=== PATIENT | female | born 1940 | race American Indian/Alaskan Native ===

== ENCOUNTER 2016-12-20 13:55 | Observation (INO) | payer MEDICARE ==
--- NOTE | 2016-12-20 15:12 | ED PDOC ---
Arrival/HPI - General Historian: Patient, Family - History of Present Illness Time/Duration: 1 week Symptom Onset: Sudden Symptom Course: Intermittent Quality: Stabbing Severity Level: 6 Activities at Onset: Rest, Light Context: Home <LISANDRA BLAS - Last Filed: 12/20/16 18:45> <Justyn Simmons - Last Filed: 12/20/16 18:49> - General Chief Complaint: Chest Pain Time Seen by Provider: 12/20/16 14:14 - History of Present Illness Narrative History of Present Illness (Text): 12/20/16 14:57 Mrs. Salas is a 76 year old female with a past medical history of HLD, HTN, DM2, vertigo, subjective history of "enlarged heart" and breast cancer s/p right mastectomy in 1995 who presents to the [facility] ED with a chief complaint of chest pain of five days duration. She reports that on Thursday of this week she was engaging in light activity around her house when she suddenly experienced a sharp left sided chest pain with radiation to her left axillary and left scapular region that lasted under a minute that patient reports was self limiting. Since that time, she has had this pain with the same presentation intermittently with no association with activity, certain foods or body positioning. She states that she took naproxen for this pain yesterday but read on the medication box that it can cause heart attacks so she started taking tylenol instead with moderate relief of her pain. She states that she sees cardiology, Dr. Philip, for her high blood pressure and that the only thing she remembers him telling her is that she has an "enlarged heart". She denies fever , chills, weight loss, headache, changes in her vision, palpitation, edema, NICHOLS , orthopnea, SOB, cough, wheezing, abdominal pain, N/V, diarrhea, burning/pain with urination, rashes or any numbness/tingling/weakness of any of her extremities. (LISANDRA BLAS) Past Medical History - Provider Review Nursing Documentation Reviewed: Yes - Travel History Have you recently traveled outside [place] w/in the past 3 mons?: No - Past History Past History: Non-Contributing - Infectious Disease Hx of Infectious Diseases: None - Reproductive Menopause: Yes - Cardiac Hx Hypertension: Yes - Endocrine/Metabolic Hx Diabetes Mellitus Type 2: Yes - Hematological/Oncological Hx Cancer: Yes (BREAST) - Psychiatric Hx Depression: No Hx Emotional Abuse: No Hx Physical Abuse: No Hx Substance Use: No - Surgical History Hx Cholecystectomy: Yes Hx Mastectomy: Yes (R) - Suicidal Assessment Feels Threatened In Home Enviroment: No <LISANDRA BLAS - Last Filed: 12/20/16 18:45> Family/Social History - Physician Review Nursing Documentation Reviewed: Yes Family/Social History: Hypertension (Father). denies: Diabetes, CAD/TX, Neoplasm/Cancer Smoking Status: Former Smoker (Quit 43 years ago; admits 15 pack year smoking history) Hx Alcohol Use: No Hx Substance Use: No <LISANDRA BLAS - Last Filed: 12/20/16 18:45> Allergies/Home Meds <LISANDRA BLAS - Last Filed: 12/20/16 18:45> <Justyn Simmons - Last Filed: 12/20/16 18:49> Allergies/Adverse Reactions: Allergies No Known Allergies Allergy (Verified 04/08/13 19:02) Home Medications: Home Meds Medication Instructions Recorded Confirmed Amlodipine Besylate/Benazepril 10 - 40 mg PO DAILY 04/08/13 12/20/16 [Amlodipine-Benazepril 2.5-10] Aspirin 81 mg PO DAILY 04/08/13 12/20/16 Atorvastatin [Lipitor] 10 mg PO DIN 04/08/13 12/20/16 Biotin/Ca/Cr/Cu/Folic Acid/I 1 ctb PO DAILY 04/08/13 12/20/16 [Centrum Silver] Glimepiride 5 mg PO DAILY 04/08/13 12/20/16 Hydrochlorothiazide 25 mg PO DAILY 04/08/13 12/20/16 Meclizine [Antivert] 25 mg PO BID PRN 04/08/13 12/20/16 Naproxen 375 mg PO TID PRN 04/08/13 12/20/16 Nebivolol Hydrochloride [Bystolic] 10 mg PO BID 04/08/13 12/20/16 Potassium Chloride [Klor-Con 10] 10 meq PO BID 04/08/13 12/20/16 Trifluoperazine HCl [Stelazine] 2 mg PO TID 04/08/13 12/20/16 cloNIDine [Catapres] 0.1 mg PO TID 04/08/13 12/20/16 Telmisartan [Micardis] 40 mg PO DAILY 12/20/16 12/20/16 Review of Systems - Physician Review All systems were reviewed & negative as marked: Yes - Review of Systems Constitutional: Normal. absent: Weight Change, Fevers, Night Sweats Eyes: Normal. absent: Vision Changes ENT: Normal. absent: Sore Throat Respiratory: Normal. absent: SOB, Cough, Wheezing Cardiovascular: Chest Pain. absent: Normal, Palpitations, Edema, NICHOLS, Syncope Gastrointestinal: Normal. absent: Abdominal Pain, Diarrhea, Nausea, Vomiting Genitourinary Female: Normal. absent: Dysuria, Hematuria Musculoskeletal: Normal. absent: Back Pain, Neck Pain Skin: Normal. absent: Rash Neurological: Normal. absent: Headache, Dizziness <LISANDRA BLAS - Last Filed: 12/20/16 18:45> Physical Exam Vital Signs Reviewed: Yes Temperature: Afebrile Blood Pressure: Hypertensive Pulse: Bradycardic Respiratory Rate: Normal Appearance: Positive for: Well-Appearing, Non-Toxic, Comfortable Pain Distress: None Mental Status: Positive for: Alert and Oriented X 3 - Systems Exam Head: Present: Atraumatic, Normocephalic Pupils: Present: PERRL Extroacular Muscles: Present: EOMI Conjunctiva: Present: Normal Mouth: Present: Moist Mucous Membranes Neck: Present: Normal Range of Motion, Trachea Midline. No: JVD, Lymphadenopathy Respiratory/Chest: Present: Clear to Auscultation, Good Air Exchange. No: Respiratory Distress, Accessory Muscle Use, Wheezes, Decreased Breath Sounds, Rales, Retracting, Rhonchi, Tender to Palpation Cardiovascular: Present: Regular Rate and Rhythm, Normal S1, S2, Peripheal Pulses Present. No: Murmurs, Irregular Rhythm, Tachycardic, Bradycardic, Muffled Abdomen: Present: Normal Bowel Sounds. No: Tenderness, Distention, Peritoneal Signs Breast/Axillary: Present: Other (R mastectomy scar noted) Back: Present: Normal Inspection. No: CVA Tenderness, Midline Tenderness, Paraspinal Tenderness Upper Extremity: Present: Normal Inspection, NORMAL PULSES, Capillary Refill < 2s. No: Cyanosis, Edema Lower Extremity: Present: Normal Inspection, NORMAL PULSES, Capillary Refill < 2 s. No: Edema, CALF TENDERNESS Neurological: Present: GCS=15, CN II-XII Intact, Speech Normal Skin: Present: Warm, Dry, Normal Color. No: Rashes Lymphatic: No: Cervical Adenopathy Psychiatric: Present: Alert, Oriented x 3, Normal Insight, Normal Concentration <LISANDRA BLAS - Last Filed: 12/20/16 18:45> Vital Signs Temp Pulse Resp BP Pulse Ox 12/20/16 17:54 71 18 161/86 H 97 12/20/16 15:24 67 192/83 H 12/20/16 15:20 67 27 H 192/83 H 99 12/20/16 14:12 98.5 F 59 L 20 181/84 H 98 Medical Decision Making - Lab Interpretations I have reviewed the lab results: Yes <LISANDRA BLAS - Last Filed: 12/20/16 18:45> <Justyn Simmons - Last Filed: 12/20/16 18:49> ED Course and Treatment: 12/20/16 15:35 Impression: 76 year old female with a past medical history of HLD, HTN, DM2, vertigo, subjective history of "enlarged heart" and breast cancer s/p right mastectomy in 1995 who presents to the [facility] ED with a chief complaint of chest pain of five days duration. Patient with hypertension into the 180's systolic on admission. Plan: -CBC, CMP, Cardiac Iso's, BNP, Lipase -Chest X-Ray (Portable) -Chest CT (PE protocol)-to evaluate for aortic dissection/rupture -Clonidine 0.1mg PO for HTN -Reassess and disposition Prior Visits: All reports and results from previous visits reviewed. 04/08/13: Patient presented with TMJ/Neck pain and was diagnosed with cervical sprain and discharged home. (LISANDRA BLAS) 12/20/16 18:25 Patient with noted history with multiple risk factors with ACS; case seen and discussed with resident. EKG with nonspecific changes; no old for comparison. Echo in [facility] from 3.5 years ago showing moderate aortic sclerosis. Returns with nonspecific, nonreproducible chest pain; first CE negative with CTA showing no dissection. 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 Gonsalez, who agreed to place the patient on her service on tele and consult with Dr. Philip. Regarding the possible neoplasm, Dr. Gonsalez said that she will be the one to inform the patient regarding that possibility. 12/20/16 18:[address] Philip called but Dr. Arevalo covering for the moment is not as familiar with patient for discussion. Consult input in [employer]. (Justyn Simmons) - Lab Interpretations Lab Results: 12/20/16 15:00 12/20/16 15:00 Lab Results 12/20/16 15:16: POC Glucose (mg/dL) 203 H 12/20/16 15:00: Sodium 145, Potassium 3.0 L, Chloride 101, Carbon Dioxide 31, Anion Gap 16, BUN 14, Creatinine 0.8, Est GFR ( Amer) > 60, Est GFR (Non- Af Amer) > 60, Random Glucose 216 H, Calcium 11.0 H, Total Bilirubin 0.4, AST 38 H, ALT 40, Alkaline Phosphatase 63, Lactate Dehydrogenase 576, Total Creatine Kinase 201, Troponin I < 0.01, NT-Pro-B Natriuret Pep 50.2, Total Protein 8.3, Albumin 4.7, Globulin 3.6, Albumin/Globulin Ratio 1.3, Lipase 266 12/20/16 15:00: WBC 5.6, RBC 4.96, Hgb 13.1, Hct 39.9, MCV 80.4, MCH 26.4, MCHC 32.8, RDW 15.1 H, Plt Count 157, MPV 11.9 H, Gran % 68.6 H, Lymph % (Auto) 22.5 , [place] % (Auto) 6.7 H, Eos % (Auto) 2.0, Baso % (Auto) 0.2, Gran # 3.82, Lymph # 1.3, [place] # 0.4, Eos # 0.1, Baso # 0.01 - RAD Interpretation Radiology Orders: 12/20/16 14:52 CHEST PORTABLE [RAD] Stat 12/20/16 15:25 ANGIOGRAPHY DISECTION PROTOCOL [CT] Stat - Medication Orders Current Medication Orders: Atorvastatin Calcium (Lipitor) 10 mg PO DIN CHITO Clonidine HCl (Catapres) 0.1 mg PO HS CHITO Clonidine HCl (Catapres) 0.2 mg PO BIDBL CHITO Insulin Human Regular (Humulin R Low) 0 units SC ACHS CHITO PRN Reason: Protocol Meclizine HCl (Antivert) 25 mg PO BID PRN PRN Reason: Dizziness Discontinued Medications Aspirin (Aspirin Chewable) 243 mg PO STAT STA Stop: 12/20/16 18:23 Last Admin: 12/20/16 18:41 Dose: 243 mg Clonidine HCl (Catapres) 0.1 mg PO STAT STA Stop: 12/20/16 14:56 Last Admin: 12/20/16 15:24 Dose: 0.1 mg MAR Pulse and Blood Pressure Document 12/20/16 15:24 [email or web address] (Rec: 12/20/16 15:24 [email or web address] [id number]) Pulse Pulse Rate (60-90 beats/min) 67 Blood Pressure Blood Pressure (100/60-150/90 mm Hg) 192/83 Potassium Chloride (Potassium Chloride Oral Soln) 40 meq PO STAT STA Stop: 12/20/16 15:59 Last Admin: 12/20/16 18:19 Dose: 40 meq Potassium Chloride (K-Dur 20 Meq Er Tab) 40 meq PO STAT STA Stop: 12/20/16 18:44 - PA / HIGH PRESSURE KETTLE OPERATOR / Resident Statement CHILANGO has reviewed & agrees with the documentation as recorded. CHILANGO has examined the patient and agrees with the treatment plan. <Justyn Simmons - Last Filed: 12/20/16 18:49> Disposition/Present on Arrival - Present on Arrival Any Indicators Present on Arrival: No History of DVT/PE: No History of Uncontrolled Diabetes: No Urinary Catheter: No History of Decub. Ulcer: No History Surgical Site Infection Following: None - Disposition Have Diagnosis and Disposition been Completed?: Yes Disposition Time: 18:46 <LISANDRA BLAS - Last Filed: 12/20/16 18:45> <Justyn Simmons - Last Filed: 12/20/16 18:49> - Disposition Diagnosis: Chest pain Disposition: HOSPITALIZED Patient Problems: Current Active Problems Problem Status Onset Chest pain Acute Condition: STABLE Discharge Instructions (ExitCare): Chest Pain (ED) Referrals: Lianet Gonsalez DO [Primary Care Provider] - Follow up with primary Forms: [employer] (Khmer)
[2016-12-20 15:16] VITALS: BMI 27.4
[2016-12-20 15:17] LABS: BASO # 0.01 K/mm3 (0.0-2.0); BASO % 0.2 % (0.0-3.0); EOS # 0.1 (0.0-0.7); GRAN # 3.82 (1.4-6.5); GRAN % 68.6 % (50.0-68.0); HEMATOCRIT 39.9 % (36.0-48.0); LYMPH # 1.3 (1.2-3.4); LYMPH % 22.5 % (22.0-35.0); MEAN CELL VOLUME 80.4 fl (80.0-105.0); MEAN CORPUSCULAR HEMOGLOBIN 26.4 pg (25.0-35.0); MEAN CORPUSCULAR HGB CONC 32.8 g/dl (31.0-37.0); MEAN PLATELET VOLUME 11.9 fl (7.0-11.0); MONO # 0.4 (0.1-0.6); MONO % 6.7 % (1.0-6.0); RED CELL DISTRIBUTION WIDTH 15.1 % (11.5-14.5); WHITE BLOOD COUNT 5.6 10^3/ul (4.5-11.0)
[2016-12-20 15:49] LABS: ALB/GLOB RATIO 1.3 (1.1-1.8); ALKALINE PHOSPHATASE 63 U/L (38-126); ALT/SGPT 40 U/L (7-56); AST/SGOT 38 U/L (14-36); BILIRUBIN,TOTAL 0.4 mg/dL (0.2-1.3); BLOOD UREA NITROGEN 14 mg/dL (7-21); CARBON DIOXIDE 31 mmol/L (21-33); CHLORIDE 101 mmol/L (98-107); GFR AFRICAN-AMERICAN > 60; GLUCOSE,RANDOM 216 mg/dL (70-110); SODIUM 145 mmol/L (132-148); TOTAL PROTEIN 8.3 g/dL (5.8-8.3)
[2016-12-20] MEDS ORDERED: Potassium Chloride 40 mEq/30 ml LIQ UD PO STA (15:58)
--- NOTE | 2016-12-20 16:05 | RAD ---
HISTORY: Chest pain COMPARISON: No prior. FINDINGS: LUNGS: No active pulmonary disease. PLEURA: No significant pleural effusion identified, no pneumothorax apparent. CARDIOVASCULAR: Normal. OSSEOUS STRUCTURES: No significant abnormalities. VISUALIZED UPPER ABDOMEN: Normal. OTHER FINDINGS: None. IMPRESSION: No active disease.
[2016-12-20 16:23] LABS: TROPONIN I < 0.01 ng/mL
[2016-12-20 17:07] LABS: LIPASE 266 U/L (23-300)
--- NOTE | 2016-12-20 17:48 | CT ---
PROCEDURE: CT Angiography Chest, Abdomen and Pelvis with and without intravenous contrast HISTORY: cp, radiating to the back; HTN - r/o PE and dissection COMPARISON: None. TECHNIQUE: Contiguous axial images of the chest, abdomen and pelvis were obtained in the phase of aortic enhancement. A noncontrast enhanced CT of the chest was also obtained to evaluate for possible intramural thrombus. Coronal and sagittal reformats were generated. IV dose administered: 120 mL Omnipaque 350 Radiation dose: Total exam DLP = 1382.56 mGy-cm. This CT exam was performed using one or more of the following dose reduction techniques: Automated exposure control, adjustment of the mA and/or kV according to patient size, and/or use of iterative reconstruction technique. FINDINGS: CT ANGIOGRAPHY OF THE CHEST WITH & WITHOUT CONTRAST: AORTA (CHEST AND ABDOMEN): The thoracic and abdominal aorta are unremarkable, without aneurysm, dissection or rupture. No intramural thrombus identified in the thoracic aorta on the non-contrast ct of the chest. The celiac axis, superior mesenteric artery, inferior mesenteric artery and the renal arteries are widely patent. The pelvic arteries are unremarkable. LUNGS: There is no pulmonary infiltrate. There are scattered calcified granulomata bilaterally. There is 7 mm noncalcified nodule in the left lower lobe (series 5, image 70 close). No other noncalcified pulmonary mass is identified. There is partially calcified scar in the right apex. This is consistent with old granulomatous disease. MEDIASTINUM: No mediastinal lymphadenopathy. Numerous bilateral thyroid nodules. Recommend correlation with thyroid ultrasound examination. LYMPH NODES: Unremarkable. PLEURA: Unremarkable. No pneumothorax. No pleural fluid. BONES: Unremarkable. OTHER FINDINGS: There is no evidence of pulmonary embolism. The examination was not performed and talar fashion specifically for evaluation of pulmonary embolism and subsegmental pulmonary artery branches are suboptimally evaluated. Status post right mastectomy. Surgical clips in right axilla status post axillary dissection. CT ANGIOGRAPHY OF THE ABDOMEN AND PELVIS WITH CONTRAST: LIVER: Normal size, contour and attenuation. No mass. Mild central intrahepatic biliary dilatation consistent with prior cholecystectomy. GALLBLADDER AND BILE DUCTS: Status post cholecystectomy. Common bile duct measures 11 mm in its distal aspect. There is questionable soft tissue density within the distal common bile duct. This may represent biliary sludge common noncalcified calculus or neoplasm. Recommend further evaluation. PANCREAS: Unremarkable. No gross lesion or ductal dilatation. SPLEEN: Normal size and contour. Punctate calcification consistent with old calcified granuloma. ADRENALS: Unremarkable. No mass. KIDNEYS AND URETERS: Multiple bilateral renal cysts. Largest right lower pole, 4.4 cm. Mid right kidney, 3.0 cm. Left lower pole, 1.1 cm. Incidental partially duplicated left renal collecting system. 6 mm nonobstructing calculus mid right kidney. . VASCULATURE: Unremarkable. No aortic aneurysm. STOMACH AND BOWEL: Small hiatal hernia. Mild diffuse mural thickening of the stomach common nonspecific. Possible gastritis. No bowel obstruction. Sigmoid diverticulosis without evidence of diverticulitis. Mural thickening of the sigmoid colon likely due to muscular hypertrophy from chronic diverticular disease. Similar diverticular disease and mural thickening is noted in the distal descending colon. APPENDIX: Normal appendix. PERITONEUM: Unremarkable. No free fluid. No free air. LYMPH NODES: Unremarkable. No enlarged lymph nodes. BLADDER: Unremarkable. REPRODUCTIVE: Uterus significant for central fluid collection suggesting possible obstruction by neoplasm or cervical stenosis. There are soft tissue masses protruding into the endometrial cavity. Further evaluation with pelvic ultrasound is advised. Bilateral cystic ovarian masses are noted. 4.6 cm in greatest dimension on the left side and 3.8 cm on the right side. Correlate with pelvic ultrasound. BONES: No fracture. Grade 1 anterolisthesis at L4-5 without spondylolysis. OTHER FINDINGS: None. IMPRESSION: No evidence of thoracic aortic dissection or aneurysm. No abdominal aortic aneurysm or dissection. No evidence of pulmonary embolism. Evidence of old granulomatous disease. 7 mm noncalcified left lower lobe nodule. Followup in 6-12 months with noncontrast chest CT as per Fleischner society criteria. Small hiatal hernia. Mild diffuse mural thickening of the stomach common nonspecific. Soft tissue density within distal common bile duct. Further evaluation suggested. See above. Bilateral renal cysts. Likely cervical obstruction with intrauterine fluid as well as masses protruding into the endometrial cavity. Findings concerning for endometrial neoplasm. Bilateral cystic adnexal masses. Recommend further evaluation with pelvic ultrasound.
[2016-12-20] MEDS ORDERED: Potassium Chloride 20 mEq ER Tab PO STA (18:43)
[2016-12-20] MEDS ORDERED: Pneumococcal 23-Valent Vaccine IM ONE (20:16)
[2016-12-20] MEDS: Insulin Reg-LOW-Coverage SC SCH (21:44)
[2016-12-21 06:30] VITALS: O2SAT 98
[2016-12-21 06:45] LABS: ALB/GLOB RATIO 1.3 (1.1-1.8); ALKALINE PHOSPHATASE 54 U/L (38-126); ALT/SGPT 38 U/L (7-56); AST/SGOT 26 U/L (14-36); BILIRUBIN,TOTAL 0.3 mg/dL (0.2-1.3); BLOOD UREA NITROGEN 16 mg/dL (7-21); CALCIUM 10.3 mg/dL (8.4-10.5); CARBON DIOXIDE 28 mmol/L (21-33); CHLORIDE 108 mmol/L (98-107); CHOLESTEROL 163 mg/dL (130-200); GFR AFRICAN-AMERICAN > 60; GLUCOSE,RANDOM 123 mg/dL (70-110); POTASSIUM 3.4 mmol/L (3.6-5.0); SODIUM 146 mmol/L (132-148)
[2016-12-21 07:04] LABS: TROPONIN I < 0.01 ng/mL
[2016-12-21 07:13] LABS: BASO # 0.01 K/mm3 (0.0-2.0); BASO % 0.2 % (0.0-3.0); EOS # 0.1 (0.0-0.7); EOS % 1.9 % (1.5-5.0); GRAN # 3.28 (1.4-6.5); GRAN % 57.1 % (50.0-68.0); HEMATOCRIT 36.9 % (36.0-48.0); LYMPH # 1.8 (1.2-3.4); LYMPH % 31.7 % (22.0-35.0); MEAN CELL VOLUME 80.7 fl (80.0-105.0); MEAN CORPUSCULAR HEMOGLOBIN 26.3 pg (25.0-35.0); MEAN CORPUSCULAR HGB CONC 32.5 g/dl (31.0-37.0); MEAN PLATELET VOLUME 12.6 fl (7.0-11.0); MONO # 0.5 (0.1-0.6); MONO % 9.1 % (1.0-6.0); RED CELL DISTRIBUTION WIDTH 15.4 % (11.5-14.5); WHITE BLOOD COUNT 5.7 10^3/ul (4.5-11.0)
[2016-12-21] MEDS: Insulin Reg-LOW-Coverage SC SCH ×2 (08:09→12:02)
[2016-12-21 08:12] VITALS: PULSE 70
--- NOTE | 2016-12-21 08:37 | CARD ---
APPROVED REPORT EKG Measurement Heart [id number] <Conclusion> Sinus rhythm with 1st degree AV block Left axis deviation Moderate voltage criteria for LVH, may be normal variant Inferior infarct, age undetermined Anteroseptal infarct, age undetermined STTW changes c/w ischemia
[2016-12-21 13:36] VITALS: RESP 16; TEMP 98.2
--- NOTE | 2016-12-21 14:05 | CON ---
DATE: 12/21/2016 CARDIOLOGY CONSULTATION HISTORY OF PRESENT ILLNESS: The patient is a 76-year-old woman who presents with focal atypical chest pain. This is transient and it is resolved. Her transient dizziness is also now resolved and the patient wants to go home. She is symptom free and ambulating in the [place]. PAST MEDICAL HISTORY: The patient's past medical history includes a history of hypertension, diabetes mellitus, and hypercholesterolemia. SOCIAL HISTORY: Negative smoker. REVIEW OF SYSTEMS: A 14-point review of systems was reviewed in detail. No cardiac symptomatology is noted. PHYSICAL EXAMINATION: VITAL SIGNS: Blood pressure is 152/78 and heart rate in the 60s and normal sinus rhythm. NECK: Negative JVD. LUNGS: Without rales, HEART: Reveals S1 and S2. EXTREMITIES: Without edema. LABORATORY DATA: Glucose is 123. Troponins are negative x2. The hemoglobin is 12.0. DIAGNOSTIC DATA: EKG shows no acute changes. IMPRESSION 1. Atypical chest pain. 2. No evidence for acute coronary syndrome. 3. Hypertension. 4. Hypercholesterolemia. 5. Diabetes mellitus. PLAN: The patient wants to go home today. However, she is agreeable to follow with Dr. Philip in the office for further follow up care. They may consider an outpatient stress test. Lukas Arevalo MD
[2016-12-21 15:27] VITALS: BP 140/68
--- NOTE | 2016-12-21 19:16 | CP.PCM.HP ---
History of Present Illness - History of Present Illness History of Present Illness: December 20, 2016 Patient brought to [facility] ER by family. Patient states for approximately one week she has been experiencing chest pain - describing it as intermittent, and "sharp ". Did not have SOB. Review of her x-ray history, she has presented with this type and distribution of pain, resultng in Xrays of her shoulder and scapula. Patient was scheduled for an office appointment December 16, 2016. Called and said "something came up and I won't be able to make it and said she would call and reschedule." lShe did not mention anything about this chest pain radiating to the back, to her scapula. Upon admission her BP was 163/75, gradually came down to 140/68. Patient is on several medications for BP and cardiac. Saw Dr. Alex not to long ago wanting her medications reviewed with a view to canceling some of them. Feels they are making her sleepy. Review of systems were essentially unchanged . Patient was admitted for observation and monitoring on the telemetry floor. Present on Admission - Present on Admission Any Indicators Present on Admission: No History of DVT/PE: No History of Uncontrolled Diabetes: No Urinary Catheter: No Decubitus Ulcer Present: No Past Patient History - Infectious Disease Hx of Infectious Diseases: None - Past Social History Smoking Status: Former Smoker - CARDIAC Hx Cardiac Disorders: Yes ("ENLARGED HEART") Hx Hypercholesterolemia: Yes Hx Hypertension: Yes - PULMONARY Hx Respiratory Disorders: Yes (H/O SMOKING CIGARETTES.PPD QUIT) - NEUROLOGICAL Hx Neurological Disorder: Yes Hx Dizziness: Yes - HEENT Hx HEENT Problems: Yes Hx Cataracts: Yes (CATARACT SURGERY) - RENAL Hx Chronic Kidney Disease: No - ENDOCRINE/METABOLIC Hx Endocrine Disorders: Yes Hx Diabetes Mellitus Type 2: Yes - HEMATOLOGICAL/ONCOLOGICAL Hx Blood Disorders: Yes Hx Cancer: Yes (BREAST/MASTECTOMY R) - INTEGUMENTARY Hx Dermatological Problems: No - MUSCULOSKELETAL/RHEUMATOLOGICAL Hx Musculoskeletal Disorders: Yes Hx Falls: Yes (LAST FALL JULY 2016) - GASTROINTESTINAL Hx Gastrointestinal Disorders: Yes Hx Gall Bladder Disease: Yes (CHOLEYCSTECTOMY) - GENITOURINARY/GYNECOLOGICAL Hx Genitourinary Disorders: No (D/C) - PSYCHIATRIC Hx Psychophysiologic Disorder: No Hx Depression: No Hx Emotional Abuse: No Hx Physical Abuse: No Hx Substance Use: No - SURGICAL HISTORY Hx Surgeries: Yes (CATARACT SURGERY) Hx Cholecystectomy: Yes Hx Mastectomy: Yes (R) Meds Allergies/Adverse Reactions: Allergies Allergy/AdvReac Type Severity Reaction Status Date / Time No Known Allergies Allergy Verified 12/20/16 19:10 Results - Vital Signs Recent Vital Signs: Last Vital Signs Temp 98.2 F 12/21/16 12:00 Pulse 70 12/21/16 12:02 Resp 16 12/21/16 12:00 BP 140/68 12/21/16 12:02 Pulse Ox 98 12/21/16 06:00 - Labs Result Diagrams: 12/21/16 06:00 12/21/16 06:00 Labs: Laboratory Results - last 24 hr 12/20/16 12/21/16 12/21/16 21:31 06:00 06:00 WBC 5.7 RBC 4.57 Hgb 12.0 Hct 36.9 MCV 80.7 MCH 26.3 MCHC 32.5 RDW 15.4 H Plt Count 160 MPV 12.6 H Gran % 57.1 Lymph % (Auto) 31.7 [place] % (Auto) 9.1 H Eos % (Auto) 1.9 Baso % (Auto) 0.2 Gran # 3.28 Lymph # 1.8 [place] # 0.5 Eos # 0.1 Baso # 0.01 Sodium 146 Potassium 3.4 L Chloride 108 H Carbon Dioxide 28 Anion Gap 13 BUN 16 Creatinine 0.9 Est GFR ( Amer) > 60 Est GFR (Non-Af Amer) > 60 POC Glucose (mg/dL) 175 H Random Glucose 123 H Calcium 10.3 Total Bilirubin 0.3 AST 26 ALT 38 Alkaline Phosphatase 54 Lactate Dehydrogenase 464 Total Creatine Kinase 157 Troponin I < 0.01 Total Protein 7.0 Albumin 3.9 Globulin 3.1 Albumin/Globulin Ratio 1.3 Triglycerides 155 Cholesterol 163 LDL Cholesterol Direct 104 HDL Cholesterol 29 12/21/16 12/21/16 07:14 11:06 WBC RBC Hgb Hct MCV MCH MCHC RDW Plt Count MPV Gran % Lymph % (Auto) [place] % (Auto) Eos % (Auto) Baso % (Auto) Gran # Lymph # [place] # Eos # Baso # Sodium Potassium Chloride Carbon Dioxide Anion Gap BUN Creatinine Est GFR ( Amer) Est GFR (Non-Af Amer) POC Glucose (mg/dL) 164 H 244 H Random Glucose Calcium Total Bilirubin AST ALT Alkaline Phosphatase Lactate Dehydrogenase Total Creatine Kinase Troponin I Total Protein Albumin Globulin Albumin/Globulin Ratio Triglycerides Cholesterol LDL Cholesterol Direct HDL Cholesterol
--- NOTE | 2016-12-21 19:43 | CP.PCM.PN ---
Subjective - Date & Time of Evaluation Date of Evaluation: 12/21/16 Time of Evaluation: 13:00 - Subjective Subjective: December 21, 2016 Patient anxious to be discharged to home. No episodes similar to that which brought patient to the ER yesterday, December 20, 2016. Patient again adamant about having her medications reviewed with a view of cancelling many of them. Told her this would again be reviewed with Dr. Alex and/or Dr. Gray. This had been done by Dr. Alex recently. Meanwhile she would stick to the regimen which has kept her BP controlled, her Glucose level good, her episodes of dizziness. She was instructed several times to see if she really needed the Meclizine every day. She states she halves the dosage, and wakes up in a.m. feeling dizzy or lightheaded. Based on the pattern of her pain as described to ER physician and to her attending, her upper torso was examined thoroughly to see if there was any evident skin involvment e.g evidence of Herpes. Skin is clear. No discomfort on palpation either. At patient's urging, review of her medications would be done during her follow-up visit in the office. Took advantage of the fact that one of her daughter's was present. I asked if, as a family, they could drive their Mother to her appointments as necessary. Daughter promised a family sit down to address the issue. Patient wants to come to [place], to me, the Consultants I have referred her to, tests, etc. It is not an overwhelming task to ask for their help. She has always done for them , and still does. Objective - Vital Signs/Intake and Output Vital Signs (last 24 hours): Temp Pulse Resp BP Pulse Ox 98.2 F 70 16 140/68 98 12/21/16 12:00 12/21/16 12:02 12/21/16 12:00 12/21/16 12:02 12/21/16 06:00 - Labs Labs: 12/21/16 06:00 12/21/16 06:00 - Constitutional Appears: Well - Head Exam Head Exam: NORMAL INSPECTION - Eye Exam Eye Exam: EOMI, Normal appearance, PERRL Pupil Exam: NORMAL ACCOMODATION, PERRL - ENT Exam ENT Exam: Mucous Membranes Moist - Neck Exam Neck Exam: Full ROM, Normal Inspection - Respiratory Exam Respiratory Exam: Clear to Ausculation Bilateral, NORMAL BREATHING PATTERN - Cardiovascular Exam Cardiovascular Exam: REGULAR RHYTHM - GI/Abdominal Exam GI & Abdominal Exam: Normal Bowel Sounds Additional comments: ER Doctor had ordered a "dissecting view" when evaluating vascular status. As a result the view went low into the pelvis. Something was mentioned by the radiologist who read the fillm of a space-occupying lesion. Will review this with Dr. Mahajan. Patient has no symptoms, no evidence of any discomfort or abnormal bleeding. - Rectal Exam Rectal Exam: Deferred - Extremities Exam Extremities Exam: Normal Inspection - Back Exam Back Exam: NORMAL INSPECTION - Neurological Exam Neurological Exam: Alert, Awake, Normal Gait, Oriented x3, Reflexes Normal - Psychiatric Exam Psychiatric exam: Normal Affect, Normal Mood - Skin Skin Exam: Intact, Warm - Additional Findings Additional findings: Examination of upper torso done before discharge today, following the distribution of patient's description of path of pain. Comments in Progress Note of 2016.
--- NOTE | 2016-12-21 19:45 | CP.PCM.DIS ---
Provider - Provider Date of Admission: 12/20/16 18:19 December 20, 2016 Attending physician: Lianet Gonsalez DO Primary care physician: Lianet Gonsalez DO Consults: Dr. Monik Alex -Dr. Arevalo covering Time Spent in preparation of Discharge (in minutes): 60 Hospital Course - Lab Results Lab Results: Most Recent Lab Values WBC 5.7 10^3/ul (4.5-11.0) 12/21/16 06:00 RBC 4.57 10^6/uL (3.5-6.1) 12/21/16 06:00 Hgb 12.0 g/dL (12.0-16.0) 12/21/16 06:00 Hct 36.9 % (36.0-48.0) 12/21/16 06:00 MCV 80.7 fl (80.0-105.0) 12/21/16 06:00 MCH 26.3 pg (25.0-35.0) 12/21/16 06:00 MCHC 32.5 g/dl (31.0-37.0) 12/21/16 06:00 RDW 15.4 % (11.5-14.5) H 12/21/16 06:00 Plt Count 160 10^3/uL (120.0-450.0) 12/21/16 06:00 MPV 12.6 fl (7.0-11.0) H 12/21/16 06:00 Gran % 57.1 % (50.0-68.0) 12/21/16 06:00 Lymph % (Auto) 31.7 % (22.0-35.0) 12/21/16 06:00 Lucas % (Auto) 9.1 % (1.0-6.0) H 12/21/16 06:00 Eos % (Auto) 1.9 % (1.5-5.0) 12/21/16 06:00 Baso % (Auto) 0.2 % (0.0-3.0) 12/21/16 06:00 Gran # 3.28 (1.4-6.5) 12/21/16 06:00 Lymph # 1.8 (1.2-3.4) 12/21/16 06:00 Lucas # 0.5 (0.1-0.6) 12/21/16 06:00 Eos # 0.1 (0.0-0.7) 12/21/16 06:00 Baso # 0.01 K/mm3 (0.0-2.0) 12/21/16 06:00 Sodium 146 mmol/L (132-148) 12/21/16 06:00 Potassium 3.4 mmol/L (3.6-5.0) L 12/21/16 06:00 Chloride 108 mmol/L (98-107) H 12/21/16 06:00 Carbon Dioxide 28 mmol/L (21-33) 12/21/16 06:00 Anion Gap 13 (10-20) 12/21/16 06:00 BUN 16 mg/dL (7-21) 12/21/16 06:00 Creatinine 0.9 mg/dL (0.5-1.4) 12/21/16 06:00 Est GFR ( Amer) > 60 12/21/16 06:00 Est GFR (Non-Af Amer) > 60 12/21/16 06:00 POC Glucose (mg/dL) 244 mg/dL (65-110) H 12/21/16 11:06 Random Glucose 123 mg/dL (70-110) H 12/21/16 06:00 Calcium 10.3 mg/dL (8.4-10.5) 12/21/16 06:00 Total Bilirubin 0.3 mg/dL (0.2-1.3) 12/21/16 06:00 AST 26 U/L (14-36) 12/21/16 06:00 ALT 38 U/L (7-56) 12/21/16 06:00 Alkaline Phosphatase 54 U/L (38-126) 12/21/16 06:00 Lactate Dehydrogenase 464 U/L (333-699) 12/21/16 06:00 Total Creatine Kinase 157 U/L (35-230) 12/21/16 06:00 Troponin I < 0.01 ng/mL 12/21/16 06:00 NT-Pro-B Natriuret Pep 50.2 pg/mL (0-450) 12/20/16 15:00 Total Protein 7.0 g/dL (5.8-8.3) 12/21/16 06:00 Albumin 3.9 g/dL (3.0-4.8) 12/21/16 06:00 Globulin 3.1 gm/dL 12/21/16 06:00 Albumin/Globulin Ratio 1.3 (1.1-1.8) 12/21/16 06:00 Triglycerides 155 mg/dL (35-160) 12/21/16 06:00 Cholesterol 163 mg/dL (130-200) 12/21/16 06:00 LDL Cholesterol Direct 104 mg/dL (0-129) 12/21/16 06:00 HDL Cholesterol 29 mg/dL (29-60) 12/21/16 06:00 Lipase 266 U/L (23-300) 12/20/16 15:00 Discharge Exam - Head Exam Head Exam: NORMAL INSPECTION Discharge Plan - Follow Up Plan Condition: STABLE Disposition: HOME/ ROUTINE Instructions: Chest Pain (DC), Meal Planning with Diabetes Exchanges (DC), Chronic Hypertension (DC)
== END 2016-12-21 16:16 | disposition home or self-care (01) ==
LOC: ED 13:55 → ERH 18:19 → 2RNO 20:30
PROVIDERS: ADMIT Surgery; ATTEND Surgery
DX: R07.89 Other chest pain (principal); I11.9 Hypertensive heart disease without heart failure; E78.00 Pure hypercholesterolemia, unspecified; E11.9 Type 2 diabetes mellitus without complications; Z85.3 Personal history of malignant neoplasm of breast; Z90.11 Acquired absence of right breast and nipple; Z90.49 Acquired absence of other specified parts of digestive tract; Z87.891 Personal history of nicotine dependence; Z79.82 Long term (current) use of aspirin; Z79.899 Other long term (current) drug therapy
CPT/HCPCS: 36415; 71010; 71275; 74175; 80053; 80061; 82550; 82948; 83615; 83690; 83880; 84484; 85025; 93005; 99285; G0378; J3480; Q9967

== ENCOUNTER 2017-11-06 07:46 | Day surgery (SDC) | payer MEDICARE ==
[2017-11-06 08:22] LABS: BASO # 0.01 K/mm3 (0.0-2.0); BASO % 0.2 % (0.0-3.0); EOS # 0.1 (0.0-0.7); EOS % 1.6 % (1.5-5.0); GRAN # 4.05 (1.4-6.5); GRAN % 65.3 % (50.0-68.0); HEMOGLOBIN 12.4 g/dL (12.0-16.0); LYMPH # 1.5 (1.2-3.4); LYMPH % 23.9 % (22.0-35.0); MEAN CORPUSCULAR HEMOGLOBIN 25.8 pg (25.0-35.0); MEAN CORPUSCULAR HGB CONC 33.1 g/dl (31.0-37.0); MEAN PLATELET VOLUME 11.3 fl (7.0-11.0); MONO # 0.6 (0.1-0.6); RBC 4.81 10^6/uL (3.5-6.1); RED CELL DISTRIBUTION WIDTH 15.8 % (11.5-14.5); WHITE BLOOD COUNT 6.2 10^3/ul (4.5-11.0)
[2017-11-06 08:32] LABS: BLOOD UREA NITROGEN 12 mg/dL (7-21); CALCIUM 11.2 mg/dL (8.4-10.5); GFR NON-AFRICAN AMERICAN > 60
[2017-11-06] MEDS ORDERED: Bupivacaine 0.5% Inj(30mL) ONE (09:41)
[2017-11-06] MEDS ORDERED: Propofol 10 mg/ml Inj (20 ML) ONE (10:22)
[2017-11-06] MEDS ORDERED: Etomidate 20 mg/10ml Inj IV ONE (10:22)
[2017-11-06] MEDS ORDERED: Midazolam 2 MG/2 ML VIAL ONE (10:22)
[2017-11-06] MEDS ORDERED: Lidocaine 1% Inj (20ml) ONE (11:37)
[2017-11-06] MEDS ORDERED: Neostigmine Methylsulfate 3mg/3ml Syringe IV ONE (12:16)
[2017-11-06] MEDS ORDERED: Desflurane Inhalation Anesthetic Liq (240 ml) ONE (12:16)
[2017-11-06] MEDS ORDERED: Bupivacaine Liposomal Inj 20 ml ONE (12:17)
[2017-11-06] MEDS ORDERED: Bupivacaine Liposomal Inj 20 ml INJ ONE (12:23)
[2017-11-06] MEDS ORDERED: Labetalol 5 mg/ml Inj 20ML IV PRN (12:52)
--- NOTE | 2017-11-06 12:53 | PCM.SURG1 ---
Surgeon's Initial Post Op Note - Surgeon's Notes Surgeon: Dr. Ritter Veterinary Parasitologist: Dr. Brizuela PGY-3, Dr. Graves PGY-2 Type of Anesthesia: General Endo Anesthesia Administered By: Dr. Ramos Pre-Operative Diagnosis: Left breast Invasive Ductal CA Operative Findings: See operative report Post-Operative Diagnosis: Same Operation Performed: Total Left Breast Mastectomy with [place] Lymph Node Biopsy Specimen/Specimens Removed: Left breast & [place] Lymph nodes Estimated Blood Loss: EBL {In ML}: 20 Blood Products Given: N/A Drains Used: [place] Post-Op Condition: Good Date of Surgery/Procedure: 11/06/17 Time of Surgery/Procedure: 12:53
[2017-11-06] MEDS ORDERED: Labetalol 5 mg/ml Inj 20ML IV ONE ×2 (12:59→13:35)
[2017-11-06] MEDS ORDERED: Lactated Ringer's 1,000 ML IV SCH (13:00)
[2017-11-06] MEDS ORDERED: Potassium Chloride 20 mEq ER Tab PO ONE (14:43)
[2017-11-06 17:06] VITALS: BMI 27.7
[2017-11-06] MEDS ORDERED: Pneumococcal 23-Valent Vaccine IM ONE (17:06)
[2017-11-06] MEDS: Insulin Lispro (humaLOG) LOW Coverage SC SCH (21:33)
[2017-11-06] MEDS ORDERED: TRIFLUOPERAZINE PO SCH (22:00)
[2017-11-07 08:12] VITALS: RESP 20; O2SAT 98
[2017-11-07] MEDS: Insulin Lispro (humaLOG) LOW Coverage SC SCH ×3 (08:13→17:07)
[2017-11-07 08:36] LABS: BLOOD UREA NITROGEN 11 mg/dL (7-21); CALCIUM 10.8 mg/dL (8.4-10.5); GFR NON-AFRICAN AMERICAN > 60
[2017-11-07 08:49] LABS: GRAN # 9.16 (1.4-6.5); GRAN % 81.3 % (50.0-68.0); HEMOGLOBIN 11.7 g/dL (12.0-16.0); LYMPH # 1.4 (1.2-3.4); MEAN CELL VOLUME 77.2 fl (80.0-105.0); MEAN CORPUSCULAR HEMOGLOBIN 25.4 pg (25.0-35.0); MEAN CORPUSCULAR HGB CONC 32.9 g/dl (31.0-37.0); MEAN PLATELET VOLUME 11.2 fl (7.0-11.0); MONO # 0.8 (0.1-0.6); MONO % 6.7 % (1.0-6.0); RBC 4.61 10^6/uL (3.5-6.1); RED CELL DISTRIBUTION WIDTH 15.6 % (11.5-14.5); WHITE BLOOD COUNT 11.3 10^3/ul (4.5-11.0)
[2017-11-07] MEDS ORDERED: TELMISARTAN 40 MG PO SCH (10:00)
[2017-11-07] MEDS ORDERED: BENAZEPRIL HCL 40 MG PO SCH (10:00)
[2017-11-07] MEDS: Dorzolamide 2% Opht Sol 10ml OU SCH ×2 (10:16→17:08)
--- NOTE | 2017-11-07 15:50 | CP.PCM.DIS ---
Provider - Provider Attending physician: Nathanael Ritter MD Primary care physician: Lianet Gonsalez DO Time Spent in preparation of Discharge (in minutes): 100 Hospital Course - Lab Results Lab Results: Most Recent Lab Values WBC 11.3 10^3/ul (4.5-11.0) H D 11/07/17 08:00 RBC 4.61 10^6/uL (3.5-6.1) 11/07/17 08:00 Hgb 11.7 g/dL (12.0-16.0) L 11/07/17 08:00 Hct 35.6 % (36.0-48.0) L 11/07/17 08:00 MCV 77.2 fl (80.0-105.0) L 11/07/17 08:00 MCH 25.4 pg (25.0-35.0) 11/07/17 08:00 MCHC 32.9 g/dl (31.0-37.0) 11/07/17 08:00 RDW 15.6 % (11.5-14.5) H 11/07/17 08:00 Plt Count 173 10^3/uL (120.0-450.0) 11/07/17 08:00 MPV 11.2 fl (7.0-11.0) H 11/07/17 08:00 Gran % 81.3 % (50.0-68.0) H 11/07/17 08:00 Lymph % (Auto) 12.0 % (22.0-35.0) L 11/07/17 08:00 [place] % (Auto) 6.7 % (1.0-6.0) H 11/07/17 08:00 Eos % (Auto) 0.0 % (1.5-5.0) L 11/07/17 08:00 Baso % (Auto) 0.0 % (0.0-3.0) 11/07/17 08:00 Gran # 9.16 (1.4-6.5) H 11/07/17 08:00 Lymph # (Auto) 1.4 (1.2-3.4) 11/07/17 08:00 [place] # (Auto) 0.8 (0.1-0.6) H 11/07/17 08:00 Eos # (Auto) 0.0 (0.0-0.7) 11/07/17 08:00 Baso # (Auto) 0.00 K/mm3 (0.0-2.0) 11/07/17 08:00 Sodium 143 mmol/L (132-148) 11/07/17 08:00 Potassium 3.3 mmol/L (3.6-5.0) L 11/07/17 08:00 Chloride 104 mmol/L (98-107) 11/07/17 08:00 Carbon Dioxide 27 mmol/L (21-33) 11/07/17 08:00 Anion Gap 16 (10-20) 11/07/17 08:00 BUN 11 mg/dL (7-21) 11/07/17 08:00 Creatinine 0.9 mg/dl (0.7-1.2) 11/07/17 08:00 Est GFR ( Amer) > 60 11/07/17 08:00 Est GFR (Non-Af Amer) > 60 11/07/17 08:00 POC Glucose (mg/dL) 194 mg/dL (65-110) H 11/06/17 16:10 Random Glucose 162 mg/dL (70-110) H 11/07/17 08:00 Calcium 10.8 mg/dL (8.4-10.5) H 11/07/17 08:00 Blood Type O POSITIVE 11/06/17 11:00 Blood Type Confirm O POSITIVE 11/06/17 11:43 Antibody Screen Negative 11/06/17 11:00 Crossmatch See Detail 11/06/17 11:00 BBK History Checked No verified bt 11/06/17 11:00 - Hospital Course Hospital Course: 77 year old female, with a past medical history of hypertension, hyperlipidemia , vertigo, 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 Patient tolerated the procedure and was sent to the floors for further observation. [place] drain was placed and output monitored. Binder put on. Overnight her blood pressure was elevated and medication was given for adequate control. Patient tolerated her diet. Morning labs showed a low level of potassium for which potassium was given to the patient. She was also given a prescription for potassium chloride 10 meQ BID for 5 days. She is to follow up with Dr. Ritter within 1-2 weeks and her PMD within 3-5 days. Above is a brief summary of the patients hospital stay. For a detailed course, please refer to medical records. Discharge Exam - Head Exam Head Exam: ATRAUMATIC, NORMAL INSPECTION, NORMOCEPHALIC - Eye Exam Eye Exam: EOMI Pupil Exam: PERRL - Respiratory Exam Respiratory Exam: Clear to PA & Lateral, NORMAL BREATHING PATTERN, UNREMARKABLE. absent: Wheezes - Cardiovascular Exam Cardiovascular Exam: REGULAR RHYTHM, +S1, +S2. absent: Systolic Murmur - GI/Abdominal Exam GI & Abdominal Exam: Normal Bowel Sounds, Soft. absent: Tenderness - Skin Skin Exam: Dry, Intact, Warm Additional comments: Binder in place Dressings c/d/i [place] drain with 40cc serosanguinous output Discharge Plan - Discharge Medications Prescriptions: Potassium Chloride [Klor-Con 10] 10 meq PO BID 5 Days #10 ter - Follow Up Plan Condition: GOOD Disposition: HOME/ ROUTINE Instructions: Mastectomy (DC) Additional Instructions: Please follow up with your primary medical doctor within 3-5 days. Please follow up with Dr. Ritter, the surgeon, within 1-2 weeks. Upon discharge, please resume your home medications as prescribed. Please take new medication for your Potassium as prescribed. Please monitor your drain output by emptying it once a day and recording the output daily. Bring the record sheet with you on your follow up visit with Dr. Ritter. Refrain from heavy lifting greater than 15-20 pounds for the next 4 weeks. Dressings can be removed after 48 hours. Okay to shower, let soapy water run over surgical site. Do not scrub the area vigorously. Please avoid baths, pools , or other large bodies of water for the next 2 weeks. For questions or concerns please call Dr. Ritter. If symptoms reoccur or worsen, please return to the ED. Referrals: Lianet Gonsalez DO [Primary Care Provider] - Nathanael Ritter MD [Staff Provider] -
[2017-11-07 16:14] VITALS: BP 115/65; PULSE 59; TEMP 98.3
--- NOTE | 2017-11-09 12:30 | OP ---
Copied To: Nathanael Ritter MD Attending MD: Nathanael Ritter MD PROCEDURE DATE: 11/06/2017 SURGEON: Nathanael Ritter MD STEAM DRIER OPERATOR: Cass Brizuela DO, PGY-3 SECOND NOTCHER: Cornel Graves DO, PGY-2 LIDAR TECHNICIAN: James Ramos MD ANESTHESIA: General endotracheal - Exparel (20 mL). PREOPERATIVE DIAGNOSIS: Left breast carcinoma. POSTOPERATIVE DIAGNOSIS: Left breast carcinoma. ADDITIONAL DIAGNOSES: Include: 1. Hypertension. 2. Schizophrenia. PROCEDURE: 1. On 11/06/2017, left modified radical mastectomy. 2. [place] node biopsy (superficial axillary dissection). OPERATIVE INDICATIONS: The patient is a 77-year-old female with a new onset of left breast cancer at the 3 o'clock position, biopsy confirmed as adenocarcinoma and after discussion with the patient and her family regarding surgical options, she underwent PET scanning which failed to show any spread of the tumor at this point. She was offered lumpectomy with radiation therapy (38 treatments), which she did not feel she could do and the alternative was mastectomy with sentinel node biopsy. Risks, benefits and alternatives with their anticipated outcomes were completely discussed with the patient and family and they all agreed to the recommended mastectomy with sentinel node biopsy. The patient initially canceled her procedure because of a rash and has now completely recovered and now comes to the operating room for elective mastectomy and sentinel node biopsy. OPERATIVE NOTE: The patient is brought to the operating room from the same-day holding area. The area has been marked accordingly. She undergoes time-out procedure and is identified via her wristband. She was then placed on the operative table in a supine manner and undergoes the induction of general anesthesia and the insertion of an endotracheal tube. Sequential compression devices were placed on her lower extremities and the chest, neck and axilla were prepped with Hibiclens chlorhexidine preparation. Earlier in the morning, the patient was injected around the areola at 4 locations with radioactive technetium and this will diffuse slowly to the axilla and demonstrate the sentinel node to be examined. The skin has been marked with a transverse modified Nomi incision and this will match the lesion and was removed 25 years earlier on the opposite side with a mastectomy as well. Incision was made above and below the areola and along the lines of the marking pen and sharp dissection carried down through the subcutaneous tissues to the breast tissue below, flaps elevated cephalad and caudad with electrocoagulating current used for hemostasis and the breast tissue was dissected down to the anterior pectoralis musculature and fascia. Once the flaps were created both above and below the breast, the breast tissue is now removed from the pectoralis major muscle using the cautery current for dissection and hemostasis and raising the anterior fascia and excising same. The specimen was completely removed at this point, submitted to Pathology in formalin. Hemostasis was confirmed and attention was drawn to the axilla for the sentinel node. The navigator probe is placed in the sterile plastic container with conducting gel and placed over the axilla and compared to the breast tissue before was removed and to the axilla, a marked increase in count was noted over the mid axilla. This area is dissected free with several lymph nodes involved and they are clamped with Sarita clamps and 2-0 chromic catgut ligature. The lymph nodes were submitted to Pathology fresh for pathologic evaluation and discussion was held with the pathologist following the procedure. The area now is completely lavaged with normal saline solution and hemostasis is confirmed. A [place] 15-English drain is inserted below the incision and secured to the skin with 2-0 Surgidac polyester suture and placed across the anterior chest wall into the axilla. The normal nerves and blood supply in the axilla are reconfirmed and an intermediate plastic closure is employed using 2-0 Polysorb interrupted suture for the subcutaneous approximation and AutoSuture skin hiram for the skin. A dry dressing is placed over this after infiltrating both flaps upper and lower with the Exparel long-acting local anesthetic. The patient is awakened, extubated and transported to the recovery room in a satisfactory condition. Sponge, instrument and suture count were verified as correct at the end of the procedure. Estimated blood loss during this procedure was less than 25 mL of blood. This dictation will be electronically signed without being read. The surgical assistants were present throughout the entire procedure from beginning to end and were essential in the dissection and in the exposure of the entire procedure performed. Nathanael Ritter MD
--- NOTE | 2017-11-11 11:57 | NM ---
Date of service: 11/06/2017 HISTORY: 77Y Year old female with left breast cancer. TECHNIQUE: Multiple injections of 832 uCi of 99m Tc filtered sulfur colloid (total volume of 8 ml) were administered into the left breast tissue surrounding nipple. Anterior and oblique projection images of the chest were subsequently obtained. FINDINGS: This static images show the injection sites surrounding the left air re- ala. IMPRESSION: Injection for sentinel node evaluation
== END 2017-11-07 18:21 | disposition home or self-care (01) ==
LOC: SDS 07:46 → 5RNO 13:57 → SDS 11-07 18:21
PROVIDERS: ATTEND Surgery
DX: C50.112 Malignant neoplasm of central portion of left female breast (principal); I10 Essential (primary) hypertension; F20.9 Schizophrenia, unspecified; E78.5 Hyperlipidemia, unspecified; D24.2 Benign neoplasm of left breast; L82.1 Other seborrheic keratosis
CPT/HCPCS: 19307; 36415 ×2; 78195; 80048 ×2; 82948 ×2; 83970; 85025 ×2; 86850; 86900; 86920; 88305; 88307; A9541; J0131; J0360; J0690; J1100; J2001; J2250; J2405; J2704; J2710; J3010; J7120 ×2